=== PATIENT | female | born 1985 | race Caucasian/White ===

== ENCOUNTER 2020-05-27 13:42 | Emergency (ER) | payer MEDICAID, SELFPAY ==
[2020-05-27 13:48] VITALS: BP 103/68; PULSE 88; RESP 18; TEMP 37; O2SAT 96
--- NOTE | 2020-05-27 14:05 | ED.GENADUL_ITS ---
Discharge Plan Disposition Patient Disposition: HOME Condition: Stable Discharge Details Chief Complaint: RashLesion Clinical Impression: Periorbital cellulitis of right eye, Abscess Primary Care Provider: Carrillo Guerrero ED Provider: John Arevalo Home Meds and New Rx's Prescriptions: Continued quetiapine [Seroquel] 25 mg Tablet 25 mg PO DAILY RF: 0 bupropion HCl [Wellbutrin XL] 150 mg Tablet Extended Release 24 Hr 100 mg PO QAM RF: 0 No Action sertraline 100 mg Tablet 100 mg PO DAILY RF: 0 Discharge Instructions Instructions: Abscess (ED), Cellulitis (ED) Additional Instructions: Apply warm soaks to eye 4-6 times daily. You may have some mild persistent discharge from the area that was abscess. Continue Bactrim and Keflex. As we discussed, we have sent purulent fluid for culture. Return for worsening, development of fever chills, or any other acute concerns. Medical Decision Making 34-year-old female referred by urgent care. She states she plucked her eyebrows 8 days ago and by Friday of this week developed right supraorbital erythema and swelling. She was seen in primary care clinic and started on Bactrim. She was seen at local urgent care yesterday given an dose of ceftriaxone, placed on Keflex with continuation of the Bactrim in an attempt at needle drainage was performed with, per the patient, minimal purulent discharge. She was brought back to the urgent care for recheck today and subsequently referred up to the ER after some concern for worsening. Patient is afebrile with normal vital signs. She does not have significant pain with extraocular movements. She has right periorbital erythema and swelling with what appears to be a developing fluctuant fluid collection in the right supraorbital region. Differential diagnosis includes preseptal versus septal cellulitis. Patient IV access established, screening labs obtained and she is referred for contrast- enhanced CT imaging. CT reveals soft tissue swelling in the periorbital region with a 5 x 9 x 11 mm area suggesting tiny fluid collection. No intraorbital extension. Patient consented for procedure, anesthetized with lidocaine, an 18-gauge needle was used to incise the supraorbital area of fluctuance from the superior aspect with aspiration of approximately 1 to 1-1/2 cc of purulent fluid that was sent for culture. I will have her continue Keflex and Bactrim. She will place warm soaks to the eye. She understands homecare and return precautions. HPI General Mode of arrival: ambulatory . Date/Time Provider Initiated Documentation: 05/27/20 13:43 . Limitations to Documentation: no limitations . Information obtained by: patient . History of Present Illness 34 year old F presents to the emergency department with the chief complaint of Right periorbital swelling, described as moderate, Quality is described as dull and constant, and is localized to the eyes and right. Patient reports no radiation. Patient started experiencing this day(s) and it has been constant. No relieving factors improve symptom(s), No exacerbating factors reported . Patient notes denies fever/chills and headaches. Patient did receive the following treatments prior to arrival, NSAID and other (Keflex and Bactrim) Related Data Home Medications Medication Instructions Recorded Confirmed bupropion HCl [Wellbutrin XL] 100 mg PO QAM 05/27/20 05/27/20 cephalexin [Keflex] 500 mg PO BID 05/27/20 05/27/20 quetiapine [Seroquel] 25 mg PO DAILY 05/27/20 05/27/20 sertraline 100 mg PO DAILY 05/27/20 05/27/20 sulfamethoxazole-trimethoprim 1 tab PO BID 05/27/20 05/27/20 [Bactrim DS] Allergies Allergy/AdvReac Type Severity Reaction Status Date / Time No Known Allergies Allergy Unverified 05/27/20 13:55 General Stated Complaint: RashLesion FELIPE: 3 Review of Systems Narrative: No fever or chills no vomiting. 6 systems reviewed and otherwise negative. Exam Narrative Exam Narrative: GEN: awake, alert, oriented 3. Pleasant, well groomed, interactive. HEAD: Normocephalic, atraumatic ENT: Mucous membranes moist, right periorbital swelling with area of focal pointing fluctuance mid supraorbital region right. External ear exam unremarkable EYES: PERRL, EOMI NECK: Full ROM, no CHAYA, no menigismus CHEST/RESP: Nontender, clear to auscultation bilateral, no wheeze/rhonchi/rales CARDIOVASCULAR: RRR, no murmur, rub zohaib. 2+ Rad pulse bilateral ABDOMEN: Soft, nontender, no mass. +Bowel sounds EXT: Full ROM, no edema, no rash Neuro: Grossly normal neurologic exam, conversant, interactive. Psych: Speech fluent, thoughts congruent, affect normal Course Vital Signs Vital signs: Vital Signs Temperature 37 C 05/27/20 13:48 Pulse 88 05/27/20 13:48 Respiratory Rate 18 05/27/20 13:48 Blood Pressure 103/68 05/27/20 13:48 Pulse Oximetry 96 05/27/20 13:48 Temperature 37 C 05/27/20 13:48 Temperature Source Temporal Artery Scan 05/27/20 13:48 Pulse 88 05/27/20 13:48 Respiratory Rate 18 05/27/20 13:48 Respiratory Effort Non-Labored 05/27/20 13:57 Blood Pressure 103/68 05/27/20 13:48 Blood Pressure Position Sitting 05/27/20 13:48 Pulse Oximetry 96 05/27/20 13:48 Oxygen Delivery Method Room Air 05/27/20 13:48 Oxygen Flow Rate 0 05/27/20 13:48 Pain Level 4 05/27/20 13:48 Procedures Abscess I/D Site: Face Side (if applicable): Right Local Anesthetic: Lidocaine 1% Amount of anesthesia used (mL): 1 Technique: Needle Aspiration Amount of fluid expressed (mL): 1
[2020-05-27] MEDS: Normal Saline Flush 10 ML SYR IVP (14:10)
[2020-05-27] MEDS: Normal Saline 500 ML IV (14:10)
[2020-05-27] MEDS: Dexamethasone 10 MG/ML VIAL IVP (14:11)
[2020-05-27 14:12] LABS: Abs Immature Grans 0.02 10^3/uL (0.0-0.06); Absolute Basophil Count 0.04 10^3/uL (0.0-0.2); Absolute Eosinophil Count 0.19 10^3/uL (0.0-0.7); Absolute Lymphocyte Count 1.96 10^3/uL (1.2-3.4); Absolute Monocyte Count 0.38 10^3/uL (0.1-0.8); Basophils % 0.4; HCT 40.7 % (36.0-46.0); HGB 13.9 g/dL (11.2-15.7); Immature Grans % 0.2; Lymphocytes % 21.1; MCH 31.2 pg (27.0-33.0); MCHC 34.2 % (32.0-36.0); MCV 91.3 fL (80-95); MPV 9.2 fL (8.0-11.0); Monocytes % 4.1; Neutrophils % 72.2; Platelet Count 234 10^3/uL (130-400); RBC 4.46 10^6/uL (3.93-5.22); RDW 13.2 % (11.7-14.6); RDW-SD 44.6 fL; WBC 9.29 10^3/uL (4.4-10.8)
[2020-05-27 14:27] LABS: ALT 17 U/L (14-59); AST 11 U/L (15-37); Alkaline Phosphatase 78 U/L (46-116); BUN 7 mg/dL (7-18); Bilirubin, Total 0.4 mg/dL (0.2-1.0); CREATININE 0.91 mg/dL (0.55-1.02); Calcium 8.8 mg/dL (8.5-10.1); Chloride 100 mmol/L (98-107); Glucose 95 mg/dL (74-106); Potassium 4.2 mmol/L (3.5-5.1); Sodium 136 mmol/L (136-145); Total Protein 7.3 g/dL (6.4-8.2)
[2020-05-27] MEDS: Normal Saline - Diluent 50 ML VIAL IV (14:31)
[2020-05-27] MEDS: Omnipaque 350 MG/ML 100 ML BTL IJ (14:32)
--- NOTE | 2020-05-27 14:32 | DI.CT_ITS ---
EXAM: CT FACIAL W CLINICAL HISTORY: R supraorbital swelling, erythema TECHNIQUE: COMPARISON: No exams were available for comparison FINDINGS: CT examination of the facial region was performed intravenous infusion of 100 cc of Omnipaque 350. T he patient reportedly has a history of right periorbital pain swelling. There is marked swelling ove rlying the orbital/supraorbital region on the right, question of an area fluid attenuation in the sub cutaneous tissues at the level of the supraorbital ridge measuring roughly 10 x 6 millimeters in diam eter sagittal imaging. Possibility of periorbital abscess raised. No involvement the globe. No inv olvement the retro bulbar tissues. Normal appearance of the extraocular musculature and optic nerves . IMPRESSION: Findings suggesting small subcutaneous abscess of the right supraorbital region. Please see above di tony.
[2020-05-27] MEDS: cefTRIAXone 1 GM/50 ML BAG IVPB (14:42)
--- NOTE | 2020-05-27 15:04 | DI.VRAD_ITS ---
PROCEDURE INFORMATION: Exam: CT Maxillofacial With Contrast Exam date and time: 05/27/2020 2:05 PM Age: 34 years old Clinical indication: Mass, lump, or swelling; Other: Right supraorbital swelling; Patient HX: Right eye swelling x 1 week. TECHNIQUE: Imaging protocol: Computed tomography images of the face with intravenous contrast. Radiation optimization: All CT scans at this facility use at least one of these dose optimization techniques: automated exposure control; mA and/or kV adjustment per patient size (includes targeted exams where dose is matched to clinical indication); or iterative reconstruction. Contrast material: OMNIPAQUE 350; Contrast volume: 100 ml; Contrast route: INTRAVENOUS (IV); COMPARISON: No relevant prior studies available. FINDINGS: Soft tissue swelling adjacent to the right orbit just below the level of the brow. In the subcutaneous tissues just below the inferior margin of the brow anterolaterally there is a 5.2 x 9 x 11 mm area decreased density suggesting a tiny fluid collection in keeping with a very small abscess. No intraorbital extension. Right globe intact. Bony structures unremarkable. IMPRESSION: Findings suggesting a very small abscess in the subcutaneous tissues adjacent to the right orbit with adjacent soft tissue swelling and cellulitis. Dictated and Authenticated by: Shaw Phillips MD. Ordering:BRIGIDO Lopez MD
[2020-05-27 15:42] VITALS: BP 99/62; PULSE 62; RESP 16; O2SAT 97
== END 2020-05-27 15:41 | disposition home or self-care (01) ==
PROVIDERS: Emergency Provider Emergency Medicine; PCP Family Medicine
DX: L03.213 Periorbital cellulitis (principal); L02.01 Cutaneous abscess of face
CPT/HCPCS: 10160; 36415; 80053; 81025; 87077; 96361; 96365; 96375; 99285; 70487; 85025; 87070; 87186; 87205; 99284; J0696; J1100; J3490